=== PATIENT | female | born 1950 | race Caucasian/White ===

== ENCOUNTER → 2020-02-14 11:15 | Outpatient (CLI) | payer MEDICARE, SELFPAY ==
--- NOTE | ~2020-02-14 | MM_ITS ---
EXAMINATION: MM screening [facility] BI w candi HISTORY: Screening mammogram TECHNIQUE: Craniocaudal and mediolateral oblique 3-D tomosynthesis images were obtained and synthetic 2-D images were generated. CAD analysis was submitted and interpreted. COMPARISON: 10/17/2018, 06/10/2017, 05/09/2016 BREAST PARENCHYMAL COMPOSITION: The breasts are heterogeneously dense, which may obscure small masses . FINDINGS: There is no evidence of suspicious mass, calcification, or architectural distortion to sugg est malignancy in either breast. There has been no suspicious interval change. IMPRESSION: 1. No mammographic evidence of malignancy. 2. Recommend routine screening mammography in one year. BI-RADS Category 1: Negative Reviewed, dictated and finalized at location A.
== END ==
PROVIDERS: PCP Internal Medicine; Visit Provider Nurse Practitioner
DX: Z12.31 Encounter for screening mammogram for malignant neoplasm of breast (principal)
CPT/HCPCS: 77063; 77067

== ENCOUNTER 2020-03-04 00:13 | Emergency (ER) | payer MEDICARE, SELFPAY ==
[2020-03-04 00:32] VITALS: BP 116/57; PULSE 94; RESP 16; TEMP 36.8; O2SAT 100
[2020-03-04 02:31] VITALS: BP 169/76; PULSE 75; RESP 20; O2SAT 98
[2020-03-04 02:57] LABS: Basophils Absolute Auto 0.1 K/mm3 (0.0-0.1); Basophils Percent Auto 1.2 % (0.2-1.2); Eosinophils Percent Auto 0.6 % (0-4.4); Hematocrit 37.9 % (37.0-47.0); Hemoglobin 12.8 g/dL (12.0-15.0); Immature Granulocyte Absolute 0.02 K/mm3 (0.00-0.031); Immature Granulocyte Percent A 0.3 % (0-0.5); Lymphocytes Absolute Auto 1.94 K/mm3 (0.9-3.2); Lymphocytes Percent Auto 29.3 % (18.3-44.2); Mean Corpuscular HGB Conc 33.8 g/dl (32-36); Mean Corpuscular Hemoglobin 29.5 pg (26-34); Mean Corpuscular Volume 87.3 fl (80-100); Mean Platelet Volume 9.3 fl (7.4-10.4); Monocytes Absolute Auto 0.6 K/mm3 (0.1-0.6); Monocytes Percent Auto 8.9 % (2.6-8.5); Neutrophils Percent Auto 59.7 % (45.5-73.1); Platelet Count Result 244 k/mm3 (150-375); Red Blood Count 4.34 M/mm3 (4.2-5.4); White Blood Count 6.6 K/mm3 (4.5-10.0)
[2020-03-04 03:08] LABS: Blood Urea Nitrogen 22 mg/dL (7-17); Calcium 9.5 mg/dL (8.4-10.2); Carbon Dioxide 28 mmol/L (22-30); Chloride 102 mmol/L (98-107); Estimated CRCL calculation 53 ml/min; Estimated Glomerular Filt Rate > 60; Glucose 102 mg/dL (65-105); Sodium 137 mmol/L (137-145)
[2020-03-04 03:25] LABS: Add Urine Microscopic? YES; Appearance Urine Clear (Clear); Bilirubin Urine Negative (Negative); Blood Urine Negative (Negative); Color Urine Straw (Yellow); Glucose Urine UA Negative (Negative); Ketones Urine Negative (Negative); Leukocyte Esterase Ur Negative LEU/UL (Negative); Nitrate Urine Negative (Negative); Protein Urine Negative (Negative); Specific Grav Ur 1.011 (1.001-1.035); Urobilinogen Urine Negative mg/dL (<2.0); WBC Urine 0-3 /hpf
--- NOTE | 2020-03-04 04:17 | ED.BACK ---
HPI - Back Pain/Injury General Chief Complaint: Back Pain/Injury Stated Complaint: right side pain Time Seen by Provider: 03/04/20 04:17 Source: patient Mode of arrival: ambulatory Limitations: no limitations History of Present Illness HPI Narrative: Patient is a 69-year-old female with a history of hypertension, hyperlipidemia who presents for evaluation of back pain. Patient reports right-sided back pain that has worsened over the past several days. She states she noticed the pain began after she began dog sitting for her son who has a very large dog that she takes on walks and tends to pull on the leash. Patient states the pain is located in the right back without radiation to the abdomen, no associated dysuria or hematuria, and worsened with movement such as bending forward. When she bends forward she can feel the pain in her bottom. Patient denies any chest pain, cough or shortness of breath. No numbness or saddle anesthesia. No difficulty with bowel or bladder function. No recent falls or injury. Patient denies any history of cancer. Related Data Home Medications Medication Instructions Recorded Confirmed calcium carb-ergocalciferol (vit tablet PO 07/12/19 D2) 500 mg (1,250 mg)-200 unit tablet loratadine 10 mg tablet 10 mg PO DAILY 07/12/19 omega-3 fatty acids 1,000 mg 1,000 mg PO DAILY 07/12/19 capsule magnesium oxide 400 mg PO DAILY 10/19/19 hmkialjo-goz-dzpiv ac 400 tablet PO DAILY tablet 10/19/19 mcg-calcium carb 500 mg-vit K1 20 mcg tablet melatonin 10 mg tablet See Rx Instructions PO .qhs tablet 12/06/19 Allergies Allergy/AdvReac Type Severity Reaction Status Date / Time No Known Allergies Allergy Verified 03/04/20 00:24 Review of Systems Review of Systems: Narrative: CONSTITUTIONAL: Denies fever CARDIOVASCULAR: Denies chest pain RESPIRATORY: Denies cough or dyspnea. GASTROINTESTINAL: Denies abdominal pain SKIN: Denies rash MUSCULOSKELETAL: Reports right-sided back pain NEUROLOGIC: Denies headache PMFSH Past Medical History Medical History Anxiety Cystocele Essential (primary) hypertension GERD (gastroesophageal reflux disease) High cholesterol Hyperlipidemia with target low density lipoprotein (LDL) cholesterol less than 130 mg/dL Hypertension Tonsillectomy planned Trigger thumb of right hand Vision abnormalities Surgical History Surgical History History of bladder surgery Hx of hysterectomy Family History Family History (Updated 08/30/19 @ 09:57 by Eneida Markham RT(R)) Sibling Hypertension Heart disease Grandparent Diabetes mellitus Father Hypertension Family history of malignant neoplasm Mother Hypertension Cerebrovascular accident Heart disease Son History of mitral valve prolapse Other Arthritis Social History Social History Smoking status: Never smoker Alcohol intake: never Gender identity (if verbalized by the patient): Female Exam Narrative: Exam Narrative: GENERAL: Awake, alert, conversant HEAD: Normocephalic, atraumatic. EYES: PERRLA and EOMI. ENT: Nares clear, no rhinorrhea or epistaxis. Mucous membranes moist. NECK: Supple. CHEST: No respiratory distress, breathing even and non labored HEART: Regular rate, sinus rhythm ABDOMEN:Non distended, non tender Thorax: Positive left lumbar paraspinal tenderness, positive left SI joint tenderness that reproduces pain. Positive pain with back flexion and extension. No midline cervical, thoracic or lumbar pain. EXTREMITIES: Normal range of motion. No edema. SKIN: Warm, dry, no rash. NEURO:No focal deficits. Alert and oriented x3. EOMs intact without nystagmus. No facial droop/asymmetry noted bilaterally. Grimace intact. Intact sensation in face. Hearing intact bilaterally. Shoulder shrug intact. Strength 5/5 bi
[2020-03-04] MEDS: ACETAMINOPHEN 500 MG TABLET 1000 MG PO (05:13)
[2020-03-04] MEDS: KETOROLAC 15 MG/ML VIAL (*BKC) IV PUSH (05:13)
[2020-03-04 05:15] VITALS: BP 140/62; PULSE 67; RESP 20; O2SAT 98
== END 2020-03-04 05:20 | disposition home or self-care (01) ==
PROVIDERS: Emergency Provider Emergency Medicine; PCP Internal Medicine
DX: S39.012A Strain of muscle, fascia and tendon of lower back, initial encounter (principal); I10 Essential (primary) hypertension; K21.9 Gastro-esophageal reflux disease without esophagitis; E78.5 Hyperlipidemia, unspecified; X50.9XXA Other and unspecified overexertion or strenuous movements or postures, initial encounter; Y93.K1 Activity, walking an animal
CPT/HCPCS: 36415; 80048; 81001; 85025; 96374; 96375; 99284; A9270; J1100; J1885

== ENCOUNTER 2021-02-25 08:13 | Outpatient (CLI) | payer MEDICARE, SELFPAY ==
--- NOTE | ~2021-02-25 | MM_ITS ---
EXAMINATION: MM screening nu BI w candi HISTORY: Screening TECHNIQUE: Craniocaudal and mediolateral oblique 3-D tomosynthesis images were obtained and synthetic 2-D images were generated. CAD analysis was submitted and interpreted. COMPARISON: Comparison to multiple prior studies sequentially, with oldest reviewed study dated 02/16. BREAST PARENCHYMAL COMPOSITION: The breasts are heterogeneously dense, which may obscure small masses . FINDINGS: There is no evidence of suspicious mass, calcification, or architectural distortion to sugg est malignancy in either breast. There has been no suspicious interval change. IMPRESSION: 1. No mammographic evidence of malignancy. 2. Recommend routine screening mammography in one year. BI-RADS Category 1: Negative Reviewed, dictated and finalized at location A.
== END 2021-02-25 08:14 | disposition home or self-care (01) ==
PROVIDERS: PCP Internal Medicine; Visit Provider Clinical Nurse Specialist
DX: Z12.31 Encounter for screening mammogram for malignant neoplasm of breast (principal)
CPT/HCPCS: 77063; 77067

== ENCOUNTER 2021-07-10 13:30 | Outpatient (RCR) | payer MEDICARE, SELFPAY ==
--- NOTE | 2021-06-04 09:28 | PTOPEVAL ---
PHYSICAL THERAPY EVALUATION AND PLAN OF CARE Thank you for referring Linnea Berrios to [facility].? The patient is scheduled to be seen for therapy? 2x/week for 4 weeks. Please review, sign, date and return this plan of care SCOTT. I agree with and certify that the following plan of care is medically necessary. Referring Physician Date Attending Provider: Flora Bautista, TILE GRADER-C Evaluation Diagnosis left shoulder pain Onset October 2020 Subjective Information Decreased left shoulder ROM Query Text:As Reported By Patient/ and shoulder pain. States that Family there is no specific injury to the shoulder but noticed gradual decrease in ROM of left shoulder, especially out the side. States that is chronically painful and increases with movement or out to the side. uses heat or cold when needed. Also cannot reach behind her back and has difficulty donning/doffing jacket. Self Report Pain Assessment Left Shoulder(s) Reported Pain Level 2 Pain Frequency Chronic Lowest Pain Intensity 1 Greatest Pain Intensity 10 Pain Score Pain Score 2: Self Report Interventions Used Interventions Used By Clinicians Exercise,Mobilization Pain Relief Interventions Used By RosaIce Patient Upper Extremity Range of Motion Scapular/ Shoulder Range of Motion Left Shoulder Flexion - Active 110 Shoulder Abduction - Active 81 Shoulder Medial Rotation - Active left iliac crest Query Text:Reach Behind the Back Shoulder Lateral Rotation - Passive 55 Upper Extremity Muscle Strength Testing Scapular/Shoulder Left Shoulder Flexion Strength 3+ Fair + Shoulder Abduction Strength 3+ Fair + Shoulder Medial Rotation Strength 4- Good - Shoulder Lateral Rotation Strength 4- Good - Muscle Length Testing Muscle Length Testing Latissmus Dorsi Muscle Length (L) Severe Tightness Upper Trapezius Muscle Length (L) Moderate Tightness Shoulder Internal Rotators Muscle Length (L) Moderate Tightness Shoulder External Rotators Muscle Length (L) Severe Tightness Palpation Assessment Palpation Palpation trigger points noted to left infraspinatus, upper trapezius ; decreased length to left latissimus dorsi Manual Therapy Manual Therapy Side Left Manual Therapy Location Shoulder Patient Position Supine Manual Therapy Treatment Passiv
--- NOTE | 2021-06-23 08:27 | PCPTNOTE ---
Patient called & cancelled scheduled appointment on 06/23.
--- NOTE | 2021-07-10 14:32 | PTOPEVAL ---
PHYSICAL THERAPY PROGRESS REPORT Thank you for referring Linnea Berrios to [facility].? I recommend that Machelle obtain imaging of the left shoulder. We will continue PT if further is needed after imaging . Please review, sign, date and return this plan of care SCOTT. I agree with and certify that the following plan of care is medically necessary. Referring Physician Date Attending Provider: Flora Bautista, COMMUNITY AIDE-C Progress Diagnosis left shoulder pain Onset October 2020 Subjective Information ROM is improving. 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 She does not like that she continues to be held back in her daily activities from pain and limited ROM. Self Report Pain Assessment Left Shoulder(s) Reported Pain Level 6 Pain Frequency Chronic Pain Score Pain Score 6: Self Report Interventions Used Interventions Used By Clinicians Exercise,Mobilization Pain Relief Interventions Used By Heat,Ice Patient Upper Extremity Range of Motion Scapular/ Shoulder Range of Motion Left Shoulder Flexion - Active 130 Shoulder Abduction - Active 90 Shoulder Medial Rotation - Active L5 Query Text:Reach Behind the Back Shoulder Lateral Rotation - Passive 65 Upper Extremity Muscle Strength Testing Scapular/Shoulder Left Shoulder Flexion Strength 4 Good Shoulder Abduction Strength 3+ Fair + Shoulder Medial Rotation Strength 4 Good Shoulder Lateral Rotation Strength 3+ Fair + Shoulder Strength Comments reports that abduction MMT is really painful Special Tests-Upper Extremity Shoulder Special Tests Empty Can (supraspinatus) Test Positive Left Painful Arc Positive Left Drop Arm Test Positive Left PT Clinical Summary Allegra is a 71 yo female presenting to outpatient physical therapy with chronic left shoulder pain with decreased ROM limiting function for ADLs and daily chores. Her pain sypmtoms fluctuate in severity although she notes somewhat decreased episodes of severe pain. She does present today with somewhat improved ROM of left shoulder in flexion and internal rotation especially. She continues to be quite
--- NOTE | 2021-08-19 10:10 | PCPTNOTE ---
PHYSICAL THERAPY DISCHARGE NOTE Attending Provider: Flora Bautista, ABIGAILC Patient:Linnea Berrios Date of :1950 At Linnea's last attended appointment on 07/10/2021 she was already scheduled for an MRI. We decided that if she needed further therapy after the MRI should call back to re-schedule. We have not received any communication that we need to continue, therefore she will be discharged at this time. Thank you for referring this patient to [facility]. Please review, sign, date and return this discharge summary SCOTT. I have been updated about the patient's current status and I agree with discharge from the above service at this time. Referring Physician Date
== END 2021-08-19 13:56 | disposition home or self-care (01) ==
LOC: ANHPT 13:30
PROVIDERS: PCP Internal Medicine; Visit Provider Clinical Nurse Specialist
DX: M79.622 Pain in left upper arm (principal)
CPT/HCPCS: 97110; 97140; 97162

== ENCOUNTER → 2021-07-17 12:52 | Outpatient (CLI) | payer MEDICARE, SELFPAY ==
--- NOTE | ~2021-07-17 | XR_ITS ---
EXAMINATION: XR shoulder LT min 2V INDICATION: Left shoulder pain TECHNIQUE: Four views of the left shoulder are submitted. COMPARISON: None FINDINGS: Normal alignment. No fracture. There is mild osteoarthritis of the glenohumeral and acromio clavicular joints. Soft tissues are unremarkable. IMPRESSION: 1. Mild osteoarthritis. Reviewed, dictated and finalized at location F. ING MANAGER IMPRESSION: 1. Mild osteoarthritis.
== END ==
PROVIDERS: PCP Internal Medicine; Visit Provider Family Medicine
DX: M19.012 Primary osteoarthritis, left shoulder (principal)
CPT/HCPCS: 73030

== ENCOUNTER 2021-07-29 16:30 | Outpatient (CLI) | payer MEDICARE, SELFPAY ==
--- NOTE | ~2021-07-29 | MR_ITS ---
EXAMINATION: MR shoulder LT wo con DATE: 07/29/2021 17:29 INDICATION: Left shoulder pain with limited range of motion TECHNIQUE: Magnetic resonance imaging (MRI) of the left shoulder was performed without intravenous co ntrast. Sequences included axial PD-weighted FS FSE, coronal oblique PD-weighted FS FSE, coronal obli que T2-weighted FS FSE, sagittal PD-weighted FS FSE, and sagittal T1-weighted SE. COMPARISON: None. FINDINGS: Coracoacromial arch: The acromion undersurface is curved in morphology (type II). Anterior subacromial spur at the inserti on of the normal coracoacromial ligament. Mild acromioclavicular osteoarthritis. Rotator cuff: Mild supraspinatus tendinopathy. There is a small mild intrasubstance tear along the superior facet f ootplate which extend 6 mm AP and involving less than one third of the tendon thickness. The infraspi natus, teres minor and subscapularis tendons are normal. Normal rotator cuff muscle bulk and signal. Biceps tendon, glenoid labrum and glenohumeral cartilage: Long head of the biceps tendon is normal. Normal sublabral sulcus at the superior glenoid. Small yajaira inal osteophytes along the inferior glenoid which extends into the inferior labrum. Glenohumeral cart ilage is normal. Fluid: Small amount of fluid in the long head biceps tendon sheath which is disproportionate to the physiolo gic amount fluid in the glenohumeral joint space consistent with mild bicipital tenosynovitis. No loo se osteochondral bodies. Small amount of fluid in the subacromial/subdeltoid bursa consistent with mi ld bursitis. Bones/other: Normal marrow signal with no edema, fracture or abnormal marrow replacing process. Thickened immediat e signal intensity soft tissue replacing the normal T1 hyperintense fat signal at the rotator cuff in terval. There is also mild thickening of the capsule at the axillary recess, both findings which can be seen in the setting of adhesive capsulitis which is a clinical diagnosis. IMPRESSION: 1. Thickened capsule at the axillary recess and thickened soft tissue at the rotator cuff interval, b oth findings which can be seen in the setting of adhesive capsulitis which is a clinical diagnosis. 2. Mild supraspinatus tendinopathy with small mild intrasubstance tear along the superior facet footp late. 3. Mild acromioclavicular and minimal glenohumeral osteoarthritis. 4. Mild bicipital tenosynovitis. 5. Mild subacromial/subdeltoid bursitis. Reviewed, dictated and finalized at location . ING MACHINE SET UP OPERATOR IMPRESSION: 1. Thickened capsule at the axillary recess and thickened soft tissue at the ro tator cuff interval, both findings which can be seen in the setting of adhesive capsulitis which is a clinical diagnosis. 2. Mild supraspinatus tendinopathy with small mild intrasubstance tear along th e superior facet footplate. 3. Mild acromioclavicular and minimal glenohumeral osteoarthritis. 4. Mild bicipital tenosynovitis. 5. Mild subacromial/subdeltoid bursitis.
== END 2021-07-29 16:31 | disposition home or self-care (01) ==
PROVIDERS: PCP Internal Medicine; Visit Provider Family Medicine
DX: M75.21 Bicipital tendinitis, right shoulder (principal); M19.012 Primary osteoarthritis, left shoulder
CPT/HCPCS: 73221

== ENCOUNTER 2021-11-25 16:33 | Outpatient (CLI) | payer MEDICARE, SELFPAY ==
--- NOTE | ~2021-11-25 | DEXA_ITS ---
Bone Density Report Name: JIM DEL TORO Age: 71 Sex: Female Ethnicity: White Date of : 1950 Indication: osteopenia; parental hip fracture; height loss; hysterectomy; postmenopausal Referring Provider: SADAF FLORES Study: Bone densitometry was performed. Exam Date: November 25, 2021 Accession number: [id number] Bone Density: Region BMD T-score Z-score Classification AP Spine(L1-L4) 0.830 -2.0 0.2 Osteopenia Femoral Neck (Left) 0.591 -2.3 -0.5 Osteopenia Total Hip (Left) 0.764 -1.5 0.1 Osteopenia Femoral Neck (Right) 0.561 -2.6 -0.8 Osteoporosis Total Hip (Right) 0.722 -1.8 -0.3 Osteopenia Total Hip Mean 0.743 -1.7 -0.1 Osteopenia World Health Organization criteria for BMD impression classify patients as: Normal (T-score at or above -1.0), Osteopenia (T-score between -1.0 and -2.5), or Osteoporosis (T-score at or below -2.5). 10-year Fracture Risk: FRAX not reported because: Some T-score for Spine Total or Hip Total or Femoral Neck at or below -2.5 Previous Exams: Region Exam Age BMD T-score BMD Change BMD Change Date g/cm2 vs Baseline vs Previous AP Spine (L1-L4) 11/25/2021 71 0.830 -2.0 -0.016 (-1.8%) -0.016 (-1.8%) 10/17/2018 68 0.846 -1.8 Total Hip(Left) 11/25/2021 71 0.764 -1.5 -0.006 (-0.8%) -0.006 (-0.8%) 10/17/2018 68 0.770 -1.4 Total Hip(Right) 11/25/2021 71 0.722 -1.8 -0.023 (-3.0%) -0.023 (-3.0%) 10/17/2018 68 0.745 -1.6 *Denotes significance at 95% confidence level, LSC for AP Spine = 0.022 g/cm2, LSC for Total Hip = 0.027 g/cm2 Clinical Information Provided by Patient: Parent has had a hip fracture Has used the following medications: Calcium Has the following medical conditions: Hysterectomy Patient maximum height was 65 Menopause Age: 53 Drinks caffeinated beverages Onset of menses at age 14 Number of children 4 Impression: The patient has osteoporosis, based on the Right Femoral Neck T-score. The patient has risk factors, including: parental hip fracture. No significant bone loss was observed. Discussion: INCREASED RISK OF FRACTURE. BONE DENSITY IS UNDESIRABLY LOW AT ONE OR MORE SKELETAL SITES, CONSISTENT WITH POSTMENOPAUSAL OSTEOPOROSIS. This patient's lowest T-score meets the World Health Organization's (WHO) criteria for osteoporosis at one or more sites (T-score -2.5 or below). In untreated patients, the risk of osteoporotic fracture increases approximately two-fold for each 1.
== END 2021-11-25 16:34 | disposition home or self-care (01) ==
LOC: ANHIMG 16:34
PROVIDERS: PCP Internal Medicine; Visit Provider Obstetrics & Gynecology
DX: Z78.0 Asymptomatic menopausal state (principal); M85.88 Other specified disorders of bone density and structure, other site; M85.852 Other specified disorders of bone density and structure, left thigh; M85.851 Other specified disorders of bone density and structure, right thigh; M81.0 Age-related osteoporosis without current pathological fracture
CPT/HCPCS: 77080

== ENCOUNTER 2022-03-31 14:19 | Outpatient (CLI) | payer MEDICARE, SELFPAY ==
--- NOTE | ~2022-03-31 | MM_ITS ---
EXAMINATION: MM screening nu BI w candi HISTORY: Screening TECHNIQUE: Craniocaudal and mediolateral oblique 3-D tomosynthesis images were obtained and synthetic 2-D images were generated. CAD analysis was submitted and interpreted. COMPARISON: Comparison to multiple prior studies sequentially, with oldest reviewed study dated 03/30. BREAST PARENCHYMAL COMPOSITION: The breasts are heterogeneously dense, which may obscure small masses . FINDINGS: There is no evidence of suspicious mass, calcification, or architectural distortion to sugg est malignancy in either breast. There has been no suspicious interval change. IMPRESSION: 1. No mammographic evidence of malignancy. 2. Recommend routine screening mammography in one year. BI-RADS Category 1: Negative Reviewed, dictated and finalized at location A.
== END 2022-03-31 14:20 | disposition home or self-care (01) ==
PROVIDERS: Visit Provider Obstetrics & Gynecology
DX: Z12.31 Encounter for screening mammogram for malignant neoplasm of breast (principal)
CPT/HCPCS: 77063; 77067

== ENCOUNTER 2023-01-14 05:58 | Day surgery (SDC) | payer MEDICARE, SELFPAY ==
[2022-11-18 09:25] VITALS: BMI 26.7
[2022-12-29 14:22] VITALS: BMI 25.3
--- NOTE | 2023-01-13 11:49 | WPDANESEPPF ---
Anes - Initial Pre Proc Eval Procedure: Operation Date: 01/14/23 07:30 Proposed Procedures p Screening Colonoscopy - Russell Hendrickson MD <Willie Doherty MD - Last Filed: 01/13/23 11:50> Date/Time: 01/13/23 11:49 <Willie Doherty MD - Last Filed: 01/13/23 11:50> Surgeon: Russell Hendrickson MD <Willie Doherty MD - Last Filed: 01/13/23 11:50> Pre Op Diagnosis: NEOPLASM SCREENING <Willie Doherty MD - Last Filed: 01/13/23 11:50> Patient Data Age: 72 Gender: F Height: 1.63 m Weight: 67 kg <Willie Doherty MD - Last Filed: 01/13/23 11:50> Allergies Allergy/AdvReac Type Severity Reaction Status Date / Time No Known Allergies Allergy Verified 01/14/23 06:27 <Willie Doherty MD - Last Filed: 01/13/23 11:50> Home Medications Medication Instructions Recorded Confirmed Type magnesium oxide 400 mg PO DAILY 10/19/19 01/14/23 History lahaianp-yfs-vhhjy ac 400 1 tablet PO DAILY 10/19/19 01/14/23 History mcg-calcium carb 500 mg-vit K1 20 mcg tablet (Women's 50 Plus Multivitamin) melatonin 10 mg tablet See Rx Instructions PO .qhs 12/06/19 01/14/23 History hydroxyzine HCl 25 mg tablet See Rx Instructions PO QHS PRN 03/31/21 01/14/23 Rx insomnia #30 tabs fluticasone propionate 50 1 spray intranasal PRN PRN 10/22/21 01/14/23 History mcg/actuation nasal Allergic Symptoms spray,suspension (Flonase Allergy Relief) meloxicam 15 mg tablet 15 mg PO DAILY PRN Pain, Mild 10/22/21 01/14/23 History omega 4-goa-iej-fish oil 1,200 mg 1 cap PO DAILY 10/22/21 01/14/23 History (144 mg-216 mg) capsule (Fish Oil) omeprazole 20 mg capsule,delayed See Rx Instructions .Route 07/08/22 01/14/23 Rx release .COMPLEX #100 caps denosumab 60 mg/mL subcutaneous 60 mg subcut [id number] 08/25/22 01/14/23 History syringe (Prolia) sertraline 25 mg tablet (Zoloft) 25 mg PO DAILY #90 tabs 10/12/22 01/14/23 Rx amlodipine 10 mg tablet 10 mg PO DAILY #90 tabs 11/16/22 01/14/23 Rx hydrochlorothiazide 12.5 mg tablet 12.5 mg PO DAILY #90 tabs 11/16/22 01/14/23 Rx lisinopril 10 mg tablet 10 mg PO DAILY #90 tabs 11/16/22 01/14/23 Rx simvastatin 20 mg tablet 20 mg PO DAILY #90 tabs 11/16/22 01/14/23 Rx sodium,potassium,mag sulfates 17.5 See Rx Instructions PO .COMPLEX 11/18/22 01/14/23 Rx gram-3.13 gram-1.6 gram oral soln #354 mL (Suprep Bowel Prep Kit) <Willie Doherty MD - Last Filed: 01/13/23 11:50> Patient hx anesthesia problems: none <Jewel Clark MD - Last Filed: 01/14/23 07:15> Family hx anesthesia problems: none <Jewel Clark MD - Last Filed: 01/14/23 07:15> Results Review: All pre-operative results and documents have been reviewed as part of the pre-operative evaluation. <Willie Doherty MD - Last Filed: 01/13/23 11:50> [facility] Past Medical History Medical History: Medical History Anxiety Cataracts, bilateral Cystocele Essential (primary) hypertension GERD (gastroesophageal reflux disease) High cholesterol Hyperlipidemia with target low density lipoprotein (LDL) cholesterol less than 130 mg/dL Hypertension Insomnia Tonsillectomy planned Trigger thumb of right hand Vaginal dryness Vision abnormalities <Willie Doherty MD - Last Filed: 01/13/23 11:50> Surgical History Surgical History: Surgical History H/O section History of bladder surgery History of colposcopy Hx of hysterectomy <Willie Doherty MD - Last Filed: 01/13/23 11:50> Family History Family History: Family History Sibling Hypertension Heart disease Grandparent Diabetes mellitus Father Hypertension Family history of malignant neoplasm Mother Hypertension Cerebrovascular accident Heart disease Son History of mitral valve prolapse Other Arthritis <Well
[2023-01-14 06:22] VITALS: BP 125/74; PULSE 74; RESP 16; TEMP 36.9; O2SAT 99
[2023-01-14 06:24] VITALS: BMI 25.3
[2023-01-14] MEDS: LACTATED RINGERS 1,000 ML 150 ML IV CONT (06:32)
--- NOTE | 2023-01-14 07:20 | PM.HPGS ---
History of Present Illness History of Present Illness Consent: Risks, benefits, and alternatives have been discussed and questions answered. Patient agrees to proceed with procedure. Chief complaint: NEOPLASM SCREENING Narrative: Linnea Berrios is a 72 year old female Presents for screening colonoscopy. Patient's current weight appetite and bowel movements appear normal. Patient denies abdominal pain. She has had no bleeding. Family history is significant for a apparent with colon polyps many years ago. Patient's colonoscopy in 2016 was unremarkable. Review of Systems Review of Systems: Review of systems noncontributory. [facility] Past Medical History Medical History Anxiety Cataracts, bilateral Cystocele Essential (primary) hypertension GERD (gastroesophageal reflux disease) High cholesterol Hyperlipidemia with target low density lipoprotein (LDL) cholesterol less than 130 mg/dL Hypertension Insomnia Tonsillectomy planned Trigger thumb of right hand Vaginal dryness Vision abnormalities Surgical History Surgical History H/O section History of bladder surgery History of colposcopy Hx of hysterectomy Family History Family History Sibling Hypertension Heart disease Grandparent Diabetes mellitus Father Hypertension Family history of malignant neoplasm Mother Hypertension Cerebrovascular accident Heart disease Son History of mitral valve prolapse Other Arthritis Social History Social History Smoking status: Never smoker Alcohol intake: never Substance use: never Substance use type: does not use Lack of Transportation: No Lack of Food: Never True Current Housing: I Have Housing Concerned About Future Housing: No Difficulty Paying Gas/Electric Bills: No Difficulty Paying for Meds: No Currently Unemployed: No Education: Associate Degree Difficulty w/ Childcare or Family Care: No Living arrangements: alone Gender identity (if verbalized by the patient): Female Spiritual care concerns: No Meds Home Medications and Allergies Home Medications Medication Instructions Recorded Confirmed Type magnesium oxide 400 mg PO DAILY 10/19/19 01/14/23 History ydvbttem-rel-ylamp ac 400 1 tablet PO DAILY 10/19/19 01/14/23 History mcg-calcium carb 500 mg-vit K1 20 mcg tablet (Women's 50 Plus Multivitamin) melatonin 10 mg tablet See Rx Instructions PO .qhs 12/06/19 01/14/23 History hydroxyzine HCl 25 mg tablet See Rx Instructions PO QHS PRN 03/31/21 01/14/23 Rx insomnia #30 tabs fluticasone propionate 50 1 spray intranasal PRN PRN 10/22/21 01/14/23 History mcg/actuation nasal Allergic Symptoms spray,suspension (Flonase Allergy Relief) meloxicam 15 mg tablet 15 mg PO DAILY PRN Pain, Mild 10/22/21 01/14/23 History omega 6-dwc-dmx-fish oil 1,200 mg 1 cap PO DAILY 10/22/21 01/14/23 History (144 mg-216 mg) capsule (Fish Oil) omeprazole 20 mg capsule,delayed See Rx Instructions .Route 07/08/22 01/14/23 Rx release .COMPLEX #100 caps denosumab 60 mg/mL subcutaneous 60 mg subcut [id number] 08/25/22 01/14/23 History syringe (Prolia) sertraline 25 mg tablet (Zoloft) 25 mg PO DAILY #90 tabs 10/12/22 01/14/23 Rx amlodipine 10 mg tablet 10 mg PO DAILY #90 tabs 11/16/22 01/14/23 Rx hydrochlorothiazide 12.5 mg tablet 12.5 mg PO DAILY #90 tabs 11/16/22 01/14/23 Rx lisinopril 10 mg tablet 10 mg PO DAILY #90 tabs 11/16/22 01/14/23 Rx simvastatin 20 mg tablet 20 mg PO DAILY #90 tabs 11/16/22 01/14/23 Rx sodium,potassium,mag sulfates 17.5 See Rx Instructions PO .COMPLEX 11/18/22 01/14/23 Rx gram-3.13 gram-1.6 gram oral soln #354 mL (Suprep Bowel Prep Kit) Allergies Allergy/AdvReac Type Severity Reaction Status Date / Time
[2023-01-14 07:46] VITALS: BP 103/55; PULSE 63; RESP 16; O2SAT 98
[2023-01-14 07:56] VITALS: BP 117/60; PULSE 60; RESP 16; O2SAT 100
--- NOTE | 2023-01-14 08:00 | WPDANESPN ---
Anes - Prog Note Post-Op Date/Time: 01/14/23 08:00 Cardiovascular status: normal Respiratory status: normal Airway patency: baseline Mental status: baseline Post-Op hydration status: normal Vital Signs: Last Vital Signs Temp 36.9 C 01/14/23 06:22 Pulse 74 01/14/23 06:22 Resp 16 01/14/23 06:22 BP 125/74 01/14/23 06:22 Pulse Ox 99 01/14/23 06:22 O2 Del Method Room Air 01/14/23 06:22 Pain Score (VAS): 0/10 I/O: Intake & Output 01/13/23 01/14/23 01/14/23 23:59 07:59 15:59 Intake Total 400 Balance 400 Patient Feedback: Patient satisfied with anesthetic care.
[2023-01-14 08:06] VITALS: BP 126/60; PULSE 57; RESP 16; O2SAT 100
== END 2023-01-14 08:20 | disposition home or self-care (01) ==
PROVIDERS: PCP Nurse Practitioner; Visit Provider Internal Medicine Gastroenterology
PROC: 0DJD8ZZ Inspection of Lower Intestinal Tract, Via Natural or Artificial Opening Endoscopic (ICD-10-PCS; CPT 45378; principal; 2023-01-14 07:30)
DX: Z12.11 Encounter for screening for malignant neoplasm of colon (principal)
CPT/HCPCS: 45380

== ENCOUNTER 2023-01-14 07:00 | Outpatient (NON) | payer MEDICARE, SELFPAY | END 2023-01-14 07:01 | disposition home or self-care (01) | LOC: ANHLAB 01-15 10:04 | PROVIDERS: PCP Nurse Practitioner; Visit Provider Internal Medicine Gastroenterology | DX: Z12.11 Encounter for screening for malignant neoplasm of colon (principal) | CPT/HCPCS: 88305 ==

== ENCOUNTER 2023-06-17 15:38 | Outpatient (CLI) | payer MEDICARE, SELFPAY ==
--- NOTE | ~2023-06-17 | MM_ITS ---
EXAMINATION: MM screening nu BI w candi HISTORY: Screening TECHNIQUE: Craniocaudal and mediolateral oblique 3-D tomosynthesis images were obtained and synthetic 2-D images were generated. CAD analysis was submitted and interpreted. COMPARISON: Comparison to multiple prior studies sequentially, with oldest reviewed study dated 08/2015. BREAST PARENCHYMAL COMPOSITION: The breasts are heterogeneously dense, which may obscure small masses FINDINGS: There is no evidence of suspicious mass, calcification, or architectural distortion to sugg est malignancy in either breast. There has been no suspicious interval change. IMPRESSION: 1. No mammographic evidence of malignancy. 2. Recommend routine screening mammography in one year. BI-RADS Category 1: Negative Reviewed, dictated and finalized at location A. ONNEL REPRESENTATIVE
== END 2023-06-17 15:39 | disposition home or self-care (01) ==
PROVIDERS: PCP Nurse Practitioner; Visit Provider Obstetrics & Gynecology
DX: Z12.31 Encounter for screening mammogram for malignant neoplasm of breast (principal)
CPT/HCPCS: 77063; 77067

== ENCOUNTER 2024-04-05 12:05 | Outpatient (CLI) | payer MEDICARE, SELFPAY ==
--- NOTE | ~2024-04-05 | DEXA_ITS ---
Bone Density Report Name: JIM DEL TORO Age: 74 Sex: Female Ethnicity: White Date of : 1950 Indication: osteopenia; monitoring treatment; parental hip fracture; height loss; hysterectomy; Referring Provider: SADAF FLORES Study: Bone densitometry was performed. Exam Date: April 05, 2024 Accession number: [id number] Bone Density: Region BMD T-score Z-score Classification AP Spine(L1-L4) 0.880 -1.5 0.8 Osteopenia Femoral Neck (Left) 0.621 -2.1 -0.1 Osteopenia Total Hip (Left) 0.816 -1.0 0.6 Normal Femoral Neck (Right) 0.577 -2.5 -0.5 Osteoporosis Total Hip (Right) 0.750 -1.6 0.1 Osteopenia Total Hip Mean 0.783 -1.3 0.4 Osteopenia World Health Organization criteria for BMD impression classify patients as: Normal (T-score at or above -1.0), Osteopenia (T-score between -1.0 and -2.5), or Osteoporosis (T-score at or below -2.5). 10-year Fracture Risk: FRAX not reported because: Some T-score for Spine Total or Hip Total or Femoral Neck at or below -2.5 Treated for osteoporosis Previous Exams: Region Exam Age BMD T-score BMD Change BMD Change Date g/cm2 vs Baseline vs Previous AP Spine (L1-L4) 04/05/2024 74 0.880 -1.5 0.034 (4.0%)* 0.050 (6.0%)* 11/25/2021 71 0.830 -2.0 -0.016 (-1.8%) -0.016 (-1.8%) 10/17/2018 68 0.846 -1.8 Total Hip(Left) 04/05/2024 74 0.816 -1.0 0.047 (6.1%)* 0.053 (6.9%)* 11/25/2021 71 0.764 -1.5 -0.006 (-0.8%) -0.006 (-0.8%) 10/17/2018 68 0.770 -1.4 Total Hip(Right) 04/05/2024 74 0.750 -1.6 0.005 (0.6%) 0.027 (3.8%)* 11/25/2021 71 0.722 -1.8 -0.023 (-3.0%) -0.023 (-3.0%) 10/17/2018 68 0.745 -1.6 *Denotes significance at 95% confidence level, LSC for AP Spine = 0.022 g/cm2, LSC for Total Hip = 0.027 g/cm2 Clinical Information Provided by Patient: Parent has had a hip fracture Is being treated for osteoporosis Has used the following medications: Prolia (i.e. denosumab), Vitamin D Has the following medical conditions: Hysterectomy Patient maximum height was 65.0 Menopause Age: 53 Drinks caffeinated beverages Onset of menses at age 15 Number of children 4 Impression: The patient has osteoporosis, based on the Right Femoral Neck T-score. The patient has risk factors, including: parental hip fracture. No significant bone loss was observed. Discussion: PATIENT UNDER TREATMENT WITH NO SIGNIFICANT BMD LOSS SINCE LAST EXAM. In an untreated patien
== END 2024-04-05 12:06 | disposition home or self-care (01) ==
PROVIDERS: PCP Internal Medicine; Visit Provider Obstetrics & Gynecology
DX: M81.0 Age-related osteoporosis without current pathological fracture (principal); M85.89 Other specified disorders of bone density and structure, multiple sites
CPT/HCPCS: 77080

== ENCOUNTER 2024-06-19 09:27 | Outpatient (CLI) | payer MEDICARE, SELFPAY ==
--- NOTE | ~2024-06-19 | MM_ITS ---
EXAMINATION: MM screening nu BI w candi HISTORY: Screening mammogram TECHNIQUE: Craniocaudal and mediolateral oblique 3-D tomosynthesis images were obtained and synthetic 2-D images were generated. CAD analysis was submitted and interpreted. COMPARISON: 06/17/2023, 03/31/2022, 02/25/2021 BREAST PARENCHYMAL COMPOSITION:Dense: The breasts are heterogeneously dense, which may obscure small masses. FINDINGS: No suspicious mass, calcification, or architectural distortion are identified in either anahi ast to suggest malignancy. There has been no suspicious interval change. IMPRESSION: No mammographic evidence of malignancy. Recommend routine screening mammography in one year. BI-RADS Category 1: Negative Reviewed, dictated and finalized at location . LLMENT CONSULTANT
== END 2024-06-19 09:28 | disposition home or self-care (01) ==
LOC: ANHIMG 09:29
PROVIDERS: PCP Internal Medicine; Visit Provider Obstetrics & Gynecology
DX: Z12.31 Encounter for screening mammogram for malignant neoplasm of breast (principal)
CPT/HCPCS: 77063; 77067

== ENCOUNTER 2025-02-23 15:14 | Emergency (ER) | payer MEDICARE, SELFPAY ==
--- NOTE | 2025-02-23 15:20 | ED.FEMALEGU ---
HPI - Female Genitourinary General Chief complaint: Urogenital-Female Stated complaint: UTI Time Seen by Provider: 02/23/25 15:30 Source: patient Mode of arrival: ambulatory Limitations: no limitations History of Present Illness HPI Narrative: Allegra is a 74-year-old female patient presenting to the clinic today with complaints of possible UTI. She reports she is having burning, frequency, and urgency with urination since yesterday. No known fevers but has had some chills last night. Denies any nausea, vomiting, back pain, or abdominal pain. Took an at-home UTI tested it was positive. Also reports having some poison ashly to the left medial distal forearm. Has been working out in her garden pulling weeds and got into some poison ashly. Has been applying calamine lotion to the area. Related Data Home Medications ?Medication ?Instructions ?Recorded ?Confirmed ?Last Taken ?Type magnesium oxide 400 mg PO DAILY 10/19/19 11/15/24 01/11/23 History rappinra-vcl-fxyxw ac 400 1 tablet PO DAILY 10/19/19 11/15/24 01/11/23 History mcg-calcium carb 500 mg-vit K1 20 mcg tablet (Women's 50 Plus Multivitamin) melatonin 10 mg tablet See Rx Instructions PO .qhs 12/06/19 11/15/24 Unknown History fluticasone propionate 50 1 spray intranasal PRN PRN 10/22/21 11/15/24 Unknown History mcg/actuation nasal Allergic Symptoms spray,suspension (Flonase Allergy Relief) omega 9-lli-ext-fish oil 1,200 mg 1 cap PO DAILY 10/22/21 11/15/24 01/11/23 History (144 mg-216 mg) capsule (Fish Oil) denosumab 60 mg/mL subcutaneous 60 mg subcut [id number] 08/25/22 11/15/24 Unknown History syringe (Prolia) cholecalciferol (vitamin D3) 25 25 mcg PO DAILY 11/11/23 11/15/24 Unknown History mcg (1,000 unit) capsule Allergies Allergy/AdvReac Type Severity Reaction Status Date / Time No Known Allergies Allergy Verified 02/23/25 15:25 Review of Systems Review of Systems: Pertinent positives per HPI. Patient denies any fever, chills, rash, headache, visual changes, dizziness, cough, runny nose, sore throat, shortness of breath, chest pain, palpitations, nausea, vomiting, diarrhea, constipation, abdominal pain, or any urinary issues. [facility] [place] Past Medical History Medical History Cataracts, bilateral Vaginal dryness Insomnia Hypertension Anxiety GERD (gastroesophageal reflux disease) High cholesterol Vision abnormalities Trigger thumb of right hand Essential (primary) hypertension Hyperlipidemia with target low density lipoprotein (LDL) cholesterol less than 130 mg/dL Cystocele Tonsillectomy planned Surgical History Surgical History H/O section History of colposcopy History of bladder surgery Hx of hysterectomy Family History Family History Sibling Hypertension Heart disease Grandparent Diabetes mellitus Father Hypertension Family history of malignant neoplasm Mother Hypertension Cerebrovascular accident Heart disease Son History of mitral valve prolapse Other Arthritis Social History Social History Smoking status: Never smoker Alcohol intake: never Substance use: never Substance use type: does not use Lack of Transportation: No Lack of Food: Never True Current Housing: I Have Housing Concerned About Future Housing: No Difficulty Paying Gas/Electric Bills: No Difficulty Paying for Meds: No Currently Unemployed: No Education: Associate Degree Difficulty w/ Childcare or Family Care: No Living arrangements: alone Gender identity (if verbalized by the patient): Female Spiritual care concerns: No Comments At the time of my signature, I reviewed and agree with the nursing past medical, surgical, social, and family history. There is no relevant family history pertinent to the patient complaint. Exam Narrative: General: Well-developed, well nourished, in no apparent distress. Head: Normocephalic, atraumatic. Cardio: Regular rate and rhythm, s1 and s2 normal, no murmur appreciated. Resp: Clear to auscultation bilaterally, no rhonchi, rales, wheezing or rubs. Abdomen: Soft, pliable, bowel sounds present in all quadrants, non-tender to palpation, no organomegly, no CVAT tenderness. Integumentary: Bieber, warm, and dry, intact without lesion, red, raised, itchy blistered rash to the right medial wrist consistent with poison ashly dermatitis Course Course Emergency Course: Portions of this record may have been created with voice recognition software. Level of Care: Express Care Visit Vital Signs Vital signs: Vital Signs Temperature 37.3 C 02/23/25 15:26 Pulse Rate 86 02/23/25 15:26 Respiratory Rate 16 02/23/25 15:26 Blood Pressure 138/64 02/23/25 15:26 Pulse Oximetry 100 02/23/25 15:26 Temperature 37.3 C 02/23/25 15:26 Pulse Rate 86 02/23/25 15:26 Respiratory Rate 16 02/23/25 15:26 Blood Pressure 138/64 02/23/25 15:26 Pulse Oximetry 100 02/23/25 15:26 Vital signs reviewed MDM - Female Genitourinary MDM Narrative Medical decision making narrative: At the time of visit patient is resting comfortably on the exam table. Patient appears to be nontoxic. Patient reports UTI symptoms x1 day-burning, frequency, and urgency. No concern for STI. Denies any vaginal discharge. Had had chills last night but no known fever. Also reporting some red, itchy, blister rash to the right forearm times 2-3 days. Has been applying calamine lotion to the affected area without much relief. No abdominal pain, back pain, nausea, or vomiting. Will order urine. Labs: Urinalysis positive for leukocytes and blood. We will send urine for culture. Plan: I suspect patient has poison ashly dermatitis to the right wrist and UTI. Prescription for Augmentin, triamcinolone cream, and Pyridium was sent to the pharmacy. Supportive measures were discussed with the patient and they voiced understanding discharge instructions and agrees to treatment plan. Return precautions reviewed Differential Diagnosis Differential diagnosis: Likely urinary tract infection, cystitis and other (Poison ashly dermatitis) Lab Data Labs: Lab Results 02/23/25 Range/Units 15:34 POC Urine Color Light/pale POC Urine Clarity Clear POC Urine pH 6.5 POC Ur Specif [place] 1.010 POC Urine Protein Negative (Negative) POC Ur Glucose (UA) Negative (Negative) POC Urine Ketones Negative (Negative) POC Urine Blood 2+ (Negative) POC Urine Nitrite Negative (Negative) POC Urine Bilirubin Negative (Negative) POC Urine Urobilinogen 0.2 POC U Leukocyte Esteras 1+ (Negative) Discharge Plan Discharge Clinical Impression: Allergic contact dermatitis due to plant UTI (urinary tract infection) Qualifiers: Urinary tract infection type: acute cystitis Hematuria presence: with hematuria Qualified Code(s): N30.01 - Acute cystitis with hematuria Patient Disposition: Home Condition: Stable Instructions: Antibiotic Form, Urinary Tract Infection in Women (ED), Poison Ashly (ED) Additional Instructions: UTI discharge instructions Urinalysis positive for leukocytes and blood. We will send urine for culture Increase fluids and stay well hydrated Wipe front to back. May use wet wipes. Avoid tub baths If sexually active- pee before and after intercourse. Wear cotton panties Avoid tight clothing up against the genitals Follow up with your PCP in 1 week if symptoms persist. Poison ashly dermatitis Apply triamcinolone cream as directed Avoid hot showers May apply calamine lotion to rash Avoid scratching and this causes rash to spread May take Benadryl 25-50mg every 6 hours as needed for itching. Follow up with your PCP in 3-5 days if symptoms persist or sooner if they worsen Go to the Emergency Room if symptoms worsen- fever, rash spreading with treatment, shortness of breath, tongue swelling, drooling, or chest pain Patient Language: Divehi Prescriptions: New triamcinolone acetonide 0.1 % cream 1 applic topical BID 7 Days Qty: 30 0RF amoxicillin-pot clavulanate 875-125 mg tablet 1 tablet PO Q12H 7 Days Qty: 14 0RF phenazopyridine [Pyridium] 200 mg tablet 200 mg PO TID PRN (Reason: pain) Qty: 6 0RF No Action magnesium oxide 400 mg magnesium capsule 400 mg PO DAILY Women's 50 Plus Multivitamin 400 mcg-500 mg calcium-20 mcg tablet 1 tablet PO DAILY melatonin 10 mg tablet See Rx Instructions PO .qhs Rx Instructions: OTC PO .qhs; omega 1-ocg-wdw-fish oil [Fish Oil] 1,200 (144-216) mg capsule 1 cap PO DAILY fluticasone propionate [Flonase Allergy Relief] 50 mcg/actuation spray,suspension 1 spray intranasal PRN PRN (Reason: Allergic Symptoms) Rx Instructions: administer into each nostril cholecalciferol (vitamin D3) 25 mcg (1,000 unit) capsule 25 mcg PO DAILY hydroxyzine HCl 25 mg tablet 25 mg PO DAILY PRN (Reason: insomnia) Qty: 30 0RF Rx Instructions: 1-2 tablets at night Prolia 60 mg/mL syringe 60 mg subcut [id number] amlodipine 10 mg tablet 10 mg PO DAILY Qty: 100 3RF hydrochlorothiazide 12.5 mg tablet 12.5 mg PO DAILY Qty: 100 3RF lisinopril 10 mg tablet 10 mg PO DAILY Qty: 100 3RF omeprazole 20 mg capsule,delayed release(DR/EC) See Rx Instructions .ROUTE .COMPLEX Qty: 100 3RF Dose Instruction: TAKE 1 CAPSULE BY MOUTH DAILY Rx Instructions: TAKE 1 CAPSULE BY MOUTH DAILY sertraline [Zoloft] 25 mg tablet 25 mg PO DAILY Qty: 100 3RF simvastatin 20 mg tablet 20 mg PO DAILY Qty: 100 3RF Follow-up/Referrals: Jackie Eid [employer] [Primary Care Provider] - Time of Disposition: 15:47 Quality NIHSS Nursing Documentation ED NIHSS nursing documentation: reviewed/agree
[2025-02-23 15:26] VITALS: BP 138/64; PULSE 86; RESP 16; TEMP 37.3; O2SAT 100
[2025-02-23 15:36] LABS: EDUAAPPEAR Clear; EDUABILI Negative (Negative); EDUABLOOD 2+ (Negative); EDUACOLOR1 Light/Pale; EDUAGLUCOSE Negative (Negative); EDUAKETONE Negative (Negative); EDUALEUKO 1+ (Negative); EDUANITRATE Negative (Negative); EDUAPH 6.5; EDUAPROTEIN Negative (Negative); EDUASPGRAVITY 1.010; EDUAUROBILI 0.2
== END 2025-02-23 15:50 | disposition home or self-care (01) ==
PROVIDERS: Emergency Provider Nurse Practitioner Family; PCP Nurse Practitioner
DX: L23.7 Allergic contact dermatitis due to plants, except food (principal); N30.01 Acute cystitis with hematuria; I10 Essential (primary) hypertension; E78.00 Pure hypercholesterolemia, unspecified; K21.9 Gastro-esophageal reflux disease without esophagitis; H26.9 Unspecified cataract; F41.9 Anxiety disorder, unspecified
CPT/HCPCS: 81003; 99213; G0463